=== PATIENT | male | born 1965 ===

== ENCOUNTER 2021-10-21 17:42 | Observation (INO) ==
[2021-10-22] MEDS ORDERED: THIAMINE INJ 100 MG, FOLIC ACID INJ 1 MG, MAGNESIUM SULF INJ 2 GM, MULTIVITAMIN INJ 10 ... IV ONE (00:10)
[2021-10-22] MEDS ORDERED: METOPROLOL TARTRATE 5 MG/5 ML VIAL IV STA (00:22)
[2021-10-22 01:21] LABS: Basophils # 0.1 10*3/uL (0.0-0.2); Basophils % 1.5 % (0.0-0.8); Eosinophils # 0.2 10*3/uL (0.0-0.87); Eosinophils % 3.9 % (0.00-10.9); Hematocrit 45.8 VOL% (42.0-52.0); Hemoglobin 15.6 GM/DL (14.0-18.0); Immature Granulocytes % 0.2 %; Immature Granulocytes Absolute 0.01 #; Lymphocytes # 1.2 10*3/uL (1.4-4.0); Lymphocytes % 25.6 % (21.2-54.2); Mean Corpuscular HGB Conc 34.1 GM/DL (32-36); Mean Corpuscular Volume 95.4 FL (87-102); Mean Platelet Volume 11.3 FL (9.6-12.0); Monocytes % 19.9 % (1.7-12.7); Neutrophils % 48.9 % (38.7-73.9); Platelet Count 210 T/CUMM (130-400); Red Cell Distribution Width 13.9 % (9.3-17.3); White Blood Count 4.6 T/CUMM (4-12)
[2021-10-22 01:35] LABS: Albumin 3.9 G/DL (3.4-5.0); Bilirubin,Total 0.6 MG/DL (0.20-1.00); Calcium 9.1 MG/DL (8.5-10.1); Potassium 3.7 MMOL/L (3.5-5.1)
[2021-10-22 01:53] LABS: Bilirubin,Urine Negative (Negative); Blood, Urine Negative (Negative); Glucose,Urine (UA) Negative (Negative); Hyaline Casts,Urine 4 /LPF (0-3); Ketones,Urine Negative (Negative); Mucus,Urine Occasional /LPF (Occasional); Nitrite,Urine Negative (Negative); Protein,Urine Negative; RBC,Urine 2 /HPF (0-4); Urine Appearance CLEAR (Clear); Urine Color Yellow (Yellow); Urine Specific Gravity 1.009 (1.001-1.035)
[2021-10-22 02:07] LABS: Barbiturates Screen,Urine Negative (Negative); Benzodiazepines Screen,Urine Negative (Negative); Cannabinoid Screen,Urine Negative (Negative); Opiate Screen,Urine Negative (Negative); Phencyclidine Screen,Urine Negative (Negative)
[2021-10-22 02:23] LABS: PT Patient Result 10.9 SECS (10.5-12.0); Partial Thromboplastin Time 28.8 SECS (23.8-32.1)
[2021-10-22] MEDS ORDERED: GLUCAGON 1 MG VIAL IM PRN (02:26)
[2021-10-22] MEDS ORDERED: ONDANSETRON 4 MG/2 ML VIAL IV PRN (02:26)
[2021-10-22] MEDS ORDERED: DEXTROSE 50% 25 GM/50 ML SYRINGE IV PRN (02:26)
[2021-10-22] MEDS ORDERED: ACETAMINOPHEN 325 MG TABLET PO PRN (02:26)
[2021-10-22] MEDS ORDERED: LORazepam 2 MG/1 ML VIAL IV PRN (02:30)
[2021-10-22] MEDS ORDERED: MULTIVITAMIN INJ 10 ML, THIAMINE INJ 100 MG in SODIUM CHLORIDE 0.9% 1,000 ML IV SCH (02:30)
[2021-10-22] MEDS: ALBUTEROL/IPRATROPIUM 3 ML NEB RESP TX SCH ×2 (03:08→07:55)
[2021-10-22 03:25] LABS: Lymphocytes 28 % (20-55); Segmented Neutrophils 61 % (50-85); Total Cells Counted 100
[2021-10-22 03:31] LABS: Platelet Estimate Normal
[2021-10-22 03:32] LABS: Target Cells Few
[2021-10-22 04:52] LABS: Basophils # 0.1 10*3/uL (0.0-0.2); Basophils % 1.3 % (0.0-0.8); Eosinophils # 0.1 10*3/uL (0.0-0.87); Hematocrit 40.3 VOL% (42.0-52.0); Hemoglobin 13.7 GM/DL (14.0-18.0); Immature Granulocytes % 0.4 %; Immature Granulocytes Absolute 0.02 #; Lymphocytes # 0.8 10*3/uL (1.4-4.0); Mean Corpuscular Volume 95.5 FL (87-102); Mean Platelet Volume 10.9 FL (9.6-12.0); Monocytes % 17.8 % (1.7-12.7); Neutrophils % 60.5 % (38.7-73.9); Platelet Count 194 T/CUMM (130-400); Red Blood Count 4.22 MC/CUMM (3.8-5.5); Red Cell Distribution Width 13.9 % (9.3-17.3); White Blood Count 4.6 T/CUMM (4-12)
[2021-10-22 05:11] LABS: Eosinophils 8 % (0-10); Lymphocytes 21 % (20-55); Platelet Estimate Adequate; Segmented Neutrophils 58 % (50-85); Total Cells Counted 100
[2021-10-22 05:16] LABS: Calcium 8.3 MG/DL (8.5-10.1); Osmolality,Calculated 268.8 MOS/KG (273-304); Potassium 4.2 MMOL/L (3.5-5.1)
[2021-10-22 08:19] VITALS: BP 150/84
[2021-10-22] MEDS ORDERED: PANTOPRAZOLE 40 MG TABLET PO SCH (09:00)
[2021-10-22] MEDS ORDERED: ENOXAPARIN 40 MG/0.4 ML SYRINGE SUBCUT SCH (09:00)
[2021-10-22] MEDS ORDERED: ASPIRIN EC 81 MG TABLET PO SCH (09:00)
[2021-10-22] MEDS ORDERED: SODI IV SCH (09:30)
[2021-10-22] MEDS ORDERED: MULTIVITAMIN IV SCH (09:30)
[2021-10-22] MEDS ORDERED: [UNRECOGNIZED DRUG - OTHER] IV SCH (09:30)
[2021-10-22] MEDS ORDERED: THIAMINE 100 MG IV SCH (09:30)
== END 2021-10-22 11:05 | disposition home or self-care (01) ==
LOC: N.ED 17:42 → N.EDINP 17:42 → N.5E 10-22 03:07
PROVIDERS: ADMIT Internal Medicine Geriatric Medicine; ATTEND Internal Medicine Geriatric Medicine